=== PATIENT | male | born 1985 | race African-American/Black ===

== ENCOUNTER 2016-10-26 02:43 | Emergency (ER) | payer SELFPAY ==
[~2016-10-26] VITALS: Ht 180.3 cm; Wt 63.6 kg
[2016-10-26 02:47] VITALS: BP 126/72
== END 2016-10-26 07:22 | disposition left against medical advice (07) ==
LOC: ER 02:43
DX: Z53.21 Procedure and treatment not carried out due to patient leaving prior to being seen by health care provider (principal)